=== PATIENT | female | born 1970 | race Two or more races ===

== ENCOUNTER 2021-07-13 09:19 | Outpatient (REF) | payer OTHER, SELFPAY ==
[2021-07-13 10:14] LABS: COVID-19 Test Positive (Negative)
== END 2021-07-13 09:20 | disposition home or self-care (01) ==
LOC: HO.LAB 09:19
PROVIDERS: Visit Provider Internal Medicine
DX: Z20.822 Contact with and (suspected) exposure to COVID-19 (principal)
CPT/HCPCS: 36415; 87635; C9803